=== PATIENT | male | born 1990 ===

== ENCOUNTER 2017-12-19 11:37 | Emergency (ER) | payer OTHER ==
[2017-12-19 11:53] VITALS: BMI 26.4
[2017-12-19 11:54] VITALS: BP 126/72
[2017-12-19 12:15] VITALS: PULSE 76; RESP 18; TEMP 98; O2SAT 100
--- NOTE | 2017-12-19 12:22 | ED PDOC ---
Upper Extremity Pain/Injury Time Seen by Provider: 12/19/17 12:20 Chief Complaint (Nursing): Upper Extremity Problem/Injury Chief Complaint (Provider): right shoulder injury History Per: Patient (27 y/o male here with right shoulder injury that occurred yesterday at basketball game when he tripped and fell. Took 2 advil today. Notes persistent pain with movement.) Past Medical History Reviewed: Historical Data, Nursing Documentation, Vital Signs Vital Signs: Last Vital Signs Temp 98 F 12/19/17 12:11 Pulse 76 12/19/17 12:11 Resp 18 12/19/17 12:11 BP 126/72 12/19/17 11:53 Pulse Ox 100 12/19/17 12:11 - Family History Family History: States: No Known Family Hx - Home Medications Home Medications: Ambulatory Orders Medication Instructions Recorded Naproxen 375 mg PO Q8 PRN #21 tablet 12/19/17 - Allergies Allergies/Adverse Reactions: Allergies Allergy/AdvReac Type Severity Reaction Status Date / Time No Known Allergies Allergy Verified 12/19/17 12:19 Review of Systems ROS Statement: Except As Marked, All Systems Reviewed And Found Negative Physical Exam - Reviewed Nursing Documentation Reviewed: Yes Vital Signs Reviewed: Yes - Physical Exam Appears: Positive for: Well, Non-toxic, No Acute Distress Head Exam: Positive for: ATRAUMATIC, NORMAL INSPECTION, NORMOCEPHALIC Skin: Positive for: Normal Color, Warm, DRY Eye Exam: Positive for: EOMI, Normal appearance, PERRL ENT: Positive for: Normal ENT Inspection Neck: Positive for: Normal, Painless ROM Cardiovascular/Chest: Positive for: Regular Rate, Rhythm Respiratory: Positive for: CNT, Normal Breath Sounds Gastrointestinal/Abdominal: Positive for: Normal Exam, Soft Back: Positive for: Normal Inspection Extremity: Positive for: Normal ROM, Tenderness (AC tenderness right shoulder; No ecchymosis/swelling noted. Limited ROM) Neurologic/Psych: Positive for: Alert, Oriented - ECG O2 Sat by Pulse Oximetry: 100 - Progress ED Course And Treament: shoulder xry: no fx; AC joint separation mild Placed in shoulder immobilizer Disposition - Clinical Impression Clinical Impression: Shoulder injury, AC separation - Patient ED Disposition Is Patient to be Admitted: No - Disposition Referrals: Roshan Crews MD [Staff Provider] - [facility] [place] [facility] [Outside] Disposition: Routine/Home Disposition Time: 12:49 Condition: FAIR Prescriptions: Naproxen 375 mg PO Q8 PRN #21 tablet PRN Reason: Pain, Moderate (4-7) Instructions: Shoulder Forms: [facility] (Japanese), [facility] ED School/Work Excuse Print Language: TAJIK
--- NOTE | 2017-12-19 14:07 | RAD ---
PROCEDURE: Radiographs of the Right Shoulder HISTORY: Posttraumatic right shoulder pain. COMPARISON: No prior. FINDINGS: BONES: Normal. No fracture. JOINTS: Normal. Glenohumeral and acromioclavicular joints preserved. No osteoarthritis. SOFT TISSUES: Normal. OTHER FINDINGS: None. IMPRESSION: Normal radiographs of the right shoulder.
== END 2017-12-19 13:59 | disposition home or self-care (01) ==
LOC: H.ER 11:37
DX: S43.102A Unspecified dislocation of left acromioclavicular joint, initial encounter (principal); W19.XXXA Unspecified fall, initial encounter; Y92.310 Basketball court as the place of occurrence of the external cause